=== PATIENT | female | born 1975 | race American Indian/Alaskan Native ===

== ENCOUNTER 2017-03-30 10:18 | Emergency (ER) | payer OTHER ==
[2017-03-30 10:29] VITALS: BP 110/73; PULSE 75; RESP 18; TEMP 97.9
[2017-03-30] MEDS ORDERED: Naproxen 550 mg Tab PO STA (10:49)
[2017-03-30] MEDS ORDERED: Naproxen 550 mg Tab PO ONE (10:52)
--- NOTE | 2017-03-30 10:53 | C.PDOC ---
History Of Present Illness Pt states that the bottom of a cart hit her posterior left ankle/foot while at work today. No fall. Time Seen by Provider: 03/30/17 10:31 Chief Complaint (Nursing): Lower Extremity Problem/Injury History Per: Patient Onset/Duration Of Symptoms: Sudden Onset (Just [employer]) Current Symptoms Are (Timing): Still Present Severity: Mild Additional History Per: Prior Records - Ankle/Foot Description Of Injury: Struck With Object Alleviating Factor(s): Ice Therapy Feet: 1 - pain/swelling Past Medical History Reviewed: Historical Data, Nursing Documentation, Vital Signs Vital Signs: Last Vital Signs Temp 97.9 F 03/30/17 10:25 Pulse 75 03/30/17 10:25 Resp 18 03/30/17 10:25 BP 110/73 03/30/17 10:25 Pulse Ox 98 03/30/17 10:25 - Medical History PMH: No Chronic Diseases Family History: States: Unknown Family Hx - Social History Hx Alcohol Use: Yes (socially) Hx Substance Use: No - Immunization History Hx Tetanus Toxoid Vaccination: No Hx Influenza Vaccination: No Hx Pneumococcal Vaccination: No Review Of Systems Constitutional: Negative for: Fever, Weakness Musculoskeletal: Negative for: Back Pain Skin: Positive for: Bruising Neurological: Negative for: Weakness, Numbness Physical Exam - Physical Exam Appears: Non-toxic, No Acute Distress Skin: Normal Color, Warm, Dry Head: Atraumatic, Normacephalic Eye(s): bilateral: PERRL, EOMI Neck: Normal ROM, Supple Extremity: Normal ROM, Tenderness (mild posterior lower left leg), No Pedal Edema, No Calf Tenderness, Capillary Refill (wnl), No Deformity, Swelling (mild posterior left ankle) Extremity: Bilateral: Normal Color And Temperature Pulses: Left Dorsalis Pedis: Normal Neurological/Psych: Oriented x3, Normal Motor, Normal Sensation Gait: Steady ED Course And Treatment O2 Sat by Pulse Oximetry: 98 Pulse Ox Interpretation: Normal Medical Decision Making Medical Decision Making: No bony tenderness. No signs of Achilles tendon rupture. Disposition Counseled Patient/Family Regarding: Diagnosis, Need For Followup - Disposition Referrals: Owen Moreno MD [Staff Provider] - Disposition: HOME/ ROUTINE Disposition Time: 10:55 Condition: STABLE Additional Instructions: Rest. Elevate. Ice. Follow up with your doctor. Return to the ER if you develop weakness, trouble walking, worsening of symptoms or if you have any other concerns. Instructions: Foot Contusion (ED) - Clinical Impression Clinical Impression: Contusion of left ankle
[2017-03-30 11:10] VITALS: O2SAT 100
== END 2017-03-30 11:09 | disposition home or self-care (01) ==
LOC: C.ER 10:18
DX: S90.02XA Contusion of left ankle, initial encounter (principal); W22.8XXA Striking against or struck by other objects, initial encounter; Y93.89 Activity, other specified; Y92.89 Other specified places as the place of occurrence of the external cause